=== PATIENT | male | born 1990 | race Hispanic/Latino ===

== ENCOUNTER 2019-02-24 19:34 | Inpatient (IN) | payer OTHER, SELFPAY ==
[2019-02-24] MEDS ORDERED: Morphine 4 MG/ML VIAL ONE ×2 (20:28→20:30)
[2019-02-24] MEDS ORDERED: Ondansetron PF 4 MG/2 ML Vial IVP PRN (22:53)
[2019-02-24] MEDS ORDERED: Morphine 4 MG/ML VIAL SLOW IVP PRN (22:53)
[2019-02-24 23:05] VITALS: BMI 46.5
[2019-02-24] MEDS: Acetaminophen 1,000 MG in Premix Bag 1 BAG IVPB PRN (23:25)
[2019-02-24] MEDS: Piperacillin/Tazobactam 4.5 GM in Sodium Chloride 0.9% 100 ML IVPB SCH (23:25)
[2019-02-24] MEDS: Sodium Chloride 0.9% 1,000 ML IV SCH (23:27)
[2019-02-25] MEDS ORDERED: Sodium Chloride 0.9% 1,000 ML IV SCH (00:45)
[2019-02-25] MEDS ORDERED: Morphine 4 MG/ML VIAL SLOW IVP PRN ×2 (00:51→12:11)
[2019-02-25] MEDS: Morphine 2 MG/ML SYRINGE SLOW IVP PRN ×2 (00:57→05:11)
[2019-02-25] MEDS: Piperacillin/Tazobactam 4.5 GM in Sodium Chloride 0.9% 100 ML IVPB SCH (05:11)
[2019-02-25] MEDS: Acetaminophen 1,000 MG in Premix Bag 1 BAG IVPB PRN (05:11)
[2019-02-25] MEDS ORDERED: Piperacillin/Tazobactam 3.375 GM VIAL ONE (09:55)
[2019-02-25] MEDS ORDERED: Sodium Chloride 0.9% 100 ML ONE (09:55)
[2019-02-25] MEDS ORDERED: Bupivacaine HCl 0.5%/Epinephrine 1:200,000/PF 30 ml Vial ONE (10:03)
[2019-02-25] MEDS ORDERED: Fentanyl 100 MCG/2 ML VIAL ONE ×5 (10:09→12:08)
[2019-02-25] MEDS ORDERED: Lidocaine 1% PF 5 ML VIAL ONE (10:41)
[2019-02-25] MEDS ORDERED: Succinylcholine Chloride 20 MG/ML 10 ml SYRINGE FS ONE (10:41)
[2019-02-25] MEDS ORDERED: PROPOFOL 200 MG/20 ML VIAL ONE (10:41)
[2019-02-25] MEDS ORDERED: Glycopyrrolate 0.2 MG/ML 5 ML SYRINGE ONE (10:41)
[2019-02-25] MEDS ORDERED: Rocuronium Bromide 10 MG/ML (10ML VIAL) ONE (10:41)
--- NOTE | 2019-02-25 11:29 | OP ---
DATE OF PROCEDURE: 02/25/2019 PREOPERATIVE DIAGNOSIS: Acute appendicitis. POSTOPERATIVE DIAGNOSIS: Acute appendicitis. PROCEDURE PERFORMED: Laparoscopic appendectomy. ANESTHESIA: General. ESTIMATED BLOOD LOSS: Minimal. COMPLICATIONS: None. SPECIMEN: Appendix. FINDINGS: The tip of the appendix is fused to the mesentery of the sigmoid colon. The sigmoid colon has mild inflammatory change as well. Drain was placed. There was no purulence in the abdomen. DESCRIPTION OF PROCEDURE: The patient was taken to the operating room and laid supine on the operating room table. After general anesthetic was obtained, a Pittman was placed. The abdomen was shaved, prepped and draped in a sterile fashion. A curved incision was made below the umbilicus, cautery dissected down to and score the fascia. Abdominal cavity was entered bluntly using a Davina clamp. Holding stitch of PDS was placed on each side of the fascia. Aurora trocar was placed. High-flow pneumoperitoneum was obtained. A suprapubic 5 mm port and left lower quadrant 5 mm port were placed under direct visualization. The base of the appendix was found and traced over toward the sigmoid colon. In this area, there was phlegmonous type changes. The appendix was able to be bluntly dissected off the side of the sigmoid colon mesentery. There did appear to be appendicitis. A window was made at the base of the appendix and mesoappendix. Laparoscopic stapler was fired across the base of the appendix. A reload was fired across the mesoappendix. Appendix placed in EndoCatch bag and brought out through the Aurora. This little pocket was irrigated copiously. There was no purulence, but there was pretty severe inflammatory change. A 19 round drain was brought out through a separate stab incision and placed in this area, and sewn in place to the skin using silk. All port sites were infiltrated using local anesthetic. All ports were removed under camera visualization and pneumoperitoneum was let down. PDS used to close the fascial defect below the umbilicus. All incisions were irrigated and closed using 4-0 Monocryl and Dermabond. The patient was sent to Recovery in stable condition. All instrument counts, needle counts and lap counts were correct. Job ID: [id number]
[2019-02-25] MEDS ORDERED: Promethazine HCl 25 MG/ML VIAL ONE (11:38)
--- NOTE | 2019-02-25 11:40 | HP ---
CHIEF COMPLAINT: Abdominal pain. HISTORY OF PRESENT ILLNESS: This is a 29-year-old male with a previous history of diverticulitis that resolved nonoperatively, who presents with a history of periumbilical pain that localized down to the lower abdomen. Pain described as 8/10 and sharp, still hurts majority in the periumbilical area. Associated with no fevers or chills. He has had nausea, but no vomiting. This is not similar to the previous diverticulitis pain, which was more in the left lower quadrant. Denies history of inflammatory bowel disease. Denies history of previous colonoscopy. CT scan reveals likely an acute appendicitis. PAST MEDICAL HISTORY: Otherwise negative. PAST SURGICAL HISTORY: Negative. MEDICATIONS: Medicines taken daily none. ALLERGIES: NO KNOWN DRUG ALLERGIES. SOCIAL HISTORY: No smoking, alcohol, or other drugs. REVIEW OF SYSTEMS: 10-system review of systems otherwise negative except as described above. PHYSICAL EXAMINATION: HEENT: Sclerae anicteric. Oropharynx clear. NECK: No lymphadenopathy. CHEST: Clear. HEART: Regular rate and rhythm. ABDOMEN: Soft. Tender in the lower abdomen with guarding, without rebound. No abdominal or inguinal hernias. EXTREMITIES: No ischemia or edema to extremities. DIAGNOSTIC STUDIES: IMAGING STUDIES: CT scan shows likely appendicitis, but the inflammatory changes right at the tip of the appendix right near the sigmoid colon. ASSESSMENT: Likely appendicitis, but could be sigmoid diverticulitis. PLAN: Diagnostic laparoscopy, laparoscopic appendectomy, possible drain placement if deemed if this is in fact right next to the sigmoid colon. Risks, benefits, and alternatives were discussed, he gives consent, we will do this today. Job ID: [id number]
[2019-02-25] MEDS ORDERED: HYDROcodone/Acetaminophen 7.5/325 mg Tablet PO PRN (12:11)
[2019-02-25] MEDS ORDERED: Dextrose 5% in Water 1,000 ML IV PRN (12:11)
[2019-02-25] MEDS ORDERED: Dextrose 50% Abboject 50 ML SYRINGE SLOW IVP PRN (12:11)
[2019-02-25] MEDS ORDERED: Promethazine HCl 25 MG/ML VIAL IM PRN (12:11)
[2019-02-25] MEDS ORDERED: hydrALAZINE 20 MG/ML VIAL SLOW IVP PRN (12:11)
[2019-02-25] MEDS: HYDROcodone/Acetaminophen 7.5/325 mg Tablet PO PRN ×2 (12:39→18:46)
[2019-02-25] MEDS: Sodium Chloride 0.9% 1,000 ML IV SCH ×3 (14:23→23:47)
[2019-02-25] MEDS: Piperacillin/Tazobactam 3.375 GM in Sodium Chloride 0.9% 100 ML IVPB SCH ×2 (15:34→21:37)
[2019-02-25] MEDS: Ketorolac Tromethamine 30 MG/ML VIAL IVP PRN ×2 (17:09→23:39)
[2019-02-25] MEDS: Famotidine/PF 20 mg/2ml Vial SLOW IVP SCH (20:05)
[2019-02-25] MEDS: Famotidine 20 MG TAB PO SCH (20:06)
[2019-02-26] MEDS ORDERED: Sodium Chloride 0.9% 1,000 ML IV SCH (00:30)
[2019-02-26] MEDS: HYDROcodone/Acetaminophen 7.5/325 mg Tablet PO PRN ×2 (00:39→06:34)
[2019-02-26] MEDS: Piperacillin/Tazobactam 3.375 GM in Sodium Chloride 0.9% 100 ML IVPB SCH ×4 (03:32→22:32)
[2019-02-26] MEDS: Ketorolac Tromethamine 30 MG/ML VIAL IVP PRN ×2 (05:46→11:49)
[2019-02-26 06:08] LABS: #Eosinphils 0.1 thou/uL (0.0-0.7); #Lymphocytes 2.1 thou/uL (1.20-3.40); #Monocytes 0.6 thou/uL (0.11-0.59); #Neutrophils 9.8 thou/uL (1.40-6.50); %Basophils 0.2 % (0.0-1.0); %Eosinophils 1.1 % (0.0-10.0); %Lymphocytes 16.4 % (21.0-51.0); %Monocytes 4.4 % (0.0-10.0); %Neutrophils 77.9 % (42.0-75.0); Hemoglobin 11.3 g/dL (14.0-18.0); Mean Corpuscular HGB CONC 33.3 g/dL (32.0-36.0); Mean Corpuscular Hemoglobin 27.5 pg (27.0-31.0); Mean Corpuscular Volume 82.5 fL (78.0-98.0); Platelet Count 279 thou/uL (130-400); RBC Distribution Width 13.5 % (11.5-14.5); Red Blood Cell (RBC) Count 4.12 mill/uL (4.70-6.10); White Blood Cell (WBC) Count 12.6 thou/uL (4.8-10.8)
[2019-02-26 06:40] LABS: Anion Gap 11 mmol/L (10-20); BUN (Urea Nitrogen) 10 mg/dL (8.9-20.6); Calc. Creatinine Clearance 213 mL/min (70-130); Carbon Dioxide 21 mmol/L (22-29); Chloride 108 mmol/L (98-107); Estimated GFR-MDRD Greater than 90; Glucose 105 mg/dL (70-105); Potassium 3.8 mmol/L (3.5-5.1); Sodium 136 mmol/L (136-145)
[2019-02-26] MEDS: Sodium Chloride 0.9% 1,000 ML IV SCH (06:50)
[2019-02-26] MEDS: Famotidine/PF 20 mg/2ml Vial SLOW IVP SCH ×2 (09:14→19:25)
[2019-02-26] MEDS: Famotidine 20 MG TAB PO SCH ×2 (09:14→19:26)
--- NOTE | 2019-02-26 13:09 | PDOC.GSPN ---
Surgery Progress Note: Subj - Subjective Patient reports: no new complaints, tolerating a regular diet Surgery Progress Note: Obj - Vital signs Vital signs: Vital Signs - Most Recent Temp Pulse Resp BP Pulse Ox 98.7 F 88 16 95/64 95 02/26/19 11:00 02/26/19 11:00 02/26/19 11:00 02/26/19 11:00 02/26/19 11:00 - Physical Exam General: no distress Respiratory: clear to auscultation Abdomen: soft, appropriately tender Wound: healing well (ALAINA serous) Surgery Progress Note: Results - Labs Result Diagrams: 02/26/19 05:46 02/26/19 05:46 Lab results: Laboratory Results - last 24 hr 02/26/19 02/26/19 05:46 05:46 WBC 12.6 H RBC 4.12 L Hgb 11.3 L Hct 34.0 L MCV 82.5 MCH 27.5 MCHC 33.3 RDW 13.5 Plt Count 279 MPV 7.0 L Neutrophils % 77.9 H Lymphocytes % 16.4 L Monocytes % 4.4 Eosinophils % 1.1 Basophils % 0.2 Neutrophils # 9.8 H Lymphocytes # 2.1 Monocytes # 0.6 H Eosinophils # 0.1 Basophils # 0.0 Sodium 136 Potassium 3.8 Chloride 108 H Carbon Dioxide 21 L Anion Gap 11 BUN 10 Creatinine 0.91 Estimated GFR (MDRD) Greater than 90 Glucose 105 Calcium 8.0 Surgery Progress Note: A/P - Problem (1) Perforated appendicitis Current Visit: Yes Code(s): K35.32 - ACUTE APPENDICITIS WITH PERF AND LOC PERITONITIS, W/O ABSCS Status: Acute - Plan Plan: POD 1 -cont zosyn -ambulating well -Likely home tomorrow
[2019-02-26] MEDS: Acetaminophen 325 MG TAB PO PRN (17:15)
[2019-02-26] MEDS: Ondansetron PF 4 MG/2 ML Vial IVP PRN (17:16)
[2019-02-27] MEDS: Acetaminophen 325 MG TAB PO PRN ×3 (04:01→23:42)
[2019-02-27] MEDS: Piperacillin/Tazobactam 3.375 GM in Sodium Chloride 0.9% 100 ML IVPB SCH ×4 (04:02→21:06)
[2019-02-27] MEDS: Ketorolac Tromethamine 30 MG/ML VIAL IVP PRN ×3 (04:53→17:14)
[2019-02-27 06:51] LABS: Band 9 % (5-11); Eosinophils 1 % (0-10); Hemoglobin 11.3 g/dL (14.0-18.0); Lymphocytes 8 % (21-51); MDiff Complete? YES; Mean Corpuscular HGB CONC 33.8 g/dL (32.0-36.0); Mean Corpuscular Hemoglobin 27.6 pg (27.0-31.0); Mean Corpuscular Volume 81.6 fL (78.0-98.0); Mean Platelet Volume 7.2 fL (7.4-10.4); Monocytes 6 % (0-10); Neutrophil 76 % (42-75); Platelet Count 282 thou/uL (130-400); RBC Distribution Width 13.3 % (11.5-14.5); White Blood Cell (WBC) Count 14.1 thou/uL (4.8-10.8)
--- NOTE | 2019-02-27 09:08 | PDOC.GSPN ---
Surgery Progress Note: Subj - Subjective Narrative: Mr. Mendez is a 29 yo male who was admitted for acute appendicitis, he is on POD #2 status post laparoscopic appendectomy. He is doing okay. He has significant chills which started within the past half hour, and he is feeling a little nausea. Has had diarrhea X 3 this morning. Otherwise, his pain is 0/10 at rest. When he moves out of bed, he experiences pain localized to site of ALAINA drain. He has been ambulating well and eating well. Of concern is some cloudy, possibly purulent, drainage from ALAINA drain. Patient denies abdominal pain, vomiting, reflux, chest pain, dyspnea, or dizziness. Surgery Progress Note: Obj - Vital signs Vital signs: Vital Signs - Most Recent Temp Pulse Resp BP Pulse Ox 98.3 F 87 22 H 107/67 97 02/27/19 07:49 02/27/19 07:49 02/27/19 07:49 02/27/19 07:49 02/27/19 07:53 - Physical Exam General: no pain (at rest), obese (morbidly), other (appeared to be in mild discomfort due to chills) Neck: trachea midline Cardiovascular: regular rate and rhythm, no murmur Respiratory: clear to auscultation, normal respiratory effort, breath sounds present Abdomen: soft, non tender, positive bowel sounds Psychiatric: memory intact, oriented to time, oriented to person, oriented to place, speech is normal Wound: healing well, drainage (ALAINA 335 ml; drainage is cloudly brown) Surgery Progress Note: Results - Labs Result Diagrams: 02/27/19 05:57 02/26/19 05:46 Lab results: Laboratory Results - last 24 hr 02/27/19 05:57 WBC 14.1 H RBC 4.10 L Hgb 11.3 L Hct 33.5 L MCV 81.6 MCH 27.6 MCHC 33.8 RDW 13.3 Plt Count 282 MPV 7.2 L Neutrophils % (Manual) 76 H Band Neuts % (Manual) 9 Lymphocytes % (Manual) 8 L Monocytes % (Manual) 6 Eosinophils % (Manual) 1 Surgery Progress Note: A/P - Problem (1) Perforated appendicitis Current Visit: Yes Code(s): K35.32 - ACUTE APPENDICITIS WITH PERF AND LOC PERITONITIS, W/O ABSCS Status: Acute - Plan Plan: POD 2. Continue zosyn. Due to fever, monitor for a few more days until he is afebrile on antibiotics. If fever persists, order CT abdomen. Continue ambulating. Continue normal diet.
[2019-02-27] MEDS: Famotidine 20 MG TAB PO SCH ×2 (09:11→21:05)
[2019-02-27] MEDS: Famotidine/PF 20 mg/2ml Vial SLOW IVP SCH ×2 (09:18→21:15)
[2019-02-27] MEDS: Ondansetron PF 4 MG/2 ML Vial IVP PRN (10:44)
[2019-02-27] MEDS ORDERED: Zolpidem Tartrate 5 MG TAB PO PRN (12:11)
[2019-02-27] MEDS: Morphine 2 MG/ML SYRINGE SLOW IVP PRN (15:51)
[2019-02-27] MEDS ORDERED: Enoxaparin Sodium 40 MG/0.4 ML SYRINGE SC SCH (21:00)
[2019-02-28] MEDS: Piperacillin/Tazobactam 3.375 GM in Sodium Chloride 0.9% 100 ML IVPB SCH ×3 (04:15→23:09)
[2019-02-28 05:58] LABS: #Lymphocytes 1.5 thou/uL (1.20-3.40); #Monocytes 0.7 thou/uL (0.11-0.59); #Neutrophils 10.9 thou/uL (1.40-6.50); %Basophils 0.1 % (0.0-1.0); %Eosinophils 0.3 % (0.0-10.0); %Lymphocytes 11.5 % (21.0-51.0); %Monocytes 5.1 % (0.0-10.0); Hemoglobin 11.1 g/dL (14.0-18.0); Mean Corpuscular Hemoglobin 27.2 pg (27.0-31.0); Mean Corpuscular Volume 82.4 fL (78.0-98.0); Mean Platelet Volume 7.2 fL (7.4-10.4); Platelet Count 264 thou/uL (130-400); RBC Distribution Width 13.4 % (11.5-14.5); Red Blood Cell (RBC) Count 4.09 mill/uL (4.70-6.10); White Blood Cell (WBC) Count 13.2 thou/uL (4.8-10.8)
[2019-02-28] MEDS: Famotidine 20 MG TAB PO SCH ×2 (07:42→21:00)
[2019-02-28] MEDS: HYDROcodone/Acetaminophen 7.5/325 mg Tablet PO PRN (07:44)
--- NOTE | 2019-02-28 08:09 | PDOC.GSPN ---
Surgery Progress Note: Subj - Subjective Narrative: Mr. Mendez is a 29 yo male who was admitted for acute appendicitis, he is on POD #3 status post laparoscopic appendectomy. He is doing okay. His pain is 0/10 at rest. When he moves out of bed, he experiences 8/10 pain localized to site of ALAINA drain. His reoccurring fevers have persisted, with his temp reaching 102.9 this morning. His ALAINA drain is draining mild amount of purulent fluid. He reports loss of appetite this morning, diarrhea X 3, and intermittent chills. Patient denies reflux, vomiting, chest pain, dyspnea, or dizziness. Surgery Progress Note: Obj - Vital signs Vital signs: Vital Signs - Most Recent Temp Pulse Resp BP Pulse Ox 99.3 F 84 16 109/70 96 02/28/19 03:43 02/28/19 03:43 02/28/19 03:43 02/28/19 03:43 02/28/19 03:43 - Physical Exam General: other (29 yo male in mild discomfort due to chills/fever, expressing anxiety about needing to go back to work) Neck: no masses, trachea midline Cardiovascular: other (tachycardic, regular rhythm, with no murmur, rubs or gallops) Respiratory: clear to auscultation, normal expansion, normal respiratory effort , breath sounds present Abdomen: soft, positive bowel sounds, tender (diffusely mostly in right lower quadrant) Musculoskeletal: normal gait Psychiatric: memory intact, oriented to time, oriented to person, oriented to place, speech is normal Wound: dressing clean,dry,intact, drainage (ALAINA purulent fluid (80 ml)) Surgery Progress Note: Results - Labs Result Diagrams: 02/28/19 05:10 02/26/19 05:46 Lab results: Laboratory Results - last 24 hr 02/28/19 05:10 WBC 13.2 H RBC 4.09 L Hgb 11.1 L Hct 33.7 L MCV 82.4 MCH 27.2 MCHC 33.0 RDW 13.4 Plt Count 264 MPV 7.2 L Neutrophils % 83.0 H Lymphocytes % 11.5 L Monocytes % 5.1 Eosinophils % 0.3 Basophils % 0.1 Neutrophils # 10.9 H Lymphocytes # 1.5 Monocytes # 0.7 H Eosinophils # 0.0 Basophils # 0.0 Surgery Progress Note: A/P - Problem (1) Perforated appendicitis Current Visit: Yes Code(s): K35.32 - ACUTE APPENDICITIS WITH PERF AND LOC PERITONITIS, W/O ABSCS Status: Acute - Plan Plan: POD 3. Continue zosyn. Persisting fevers and purulent drainage are raising concern for infectious process/abscess formation. CT (02/28/19) shows more severe diverticulitis/with contast extravasation on rectal contrast Addendum - Physician - Physician Attestation Date/Time: 02/28/19 5452 I personally performed or re-performed the physical examination and medical decision making. I have verified all student documentation or findings, including history, physical exam and/or medical decision making. CT results reviewed. Patient having chills again this afternoon. On exam he is more distended and has more peritoneal signs. Unfortunately I think he needs sigmoid colectomy and colostomy today. Worry about worsening sepsis with the rigors/chills. He understands need for temporary colostomy. Risks, benefits, alternatives discussed and he gives consent
[2019-02-28] MEDS: Famotidine/PF 20 mg/2ml Vial SLOW IVP SCH ×2 (09:24→20:59)
[2019-02-28] MEDS ORDERED: Rocuronium Bromide 10 MG/ML (10ML VIAL) ONE (11:48)
[2019-02-28] MEDS ORDERED: Glycopyrrolate 0.2 MG/ML 5 ML SYRINGE ONE (11:48)
[2019-02-28] MEDS ORDERED: Dexamethasone 20 MG/5 ML VIAL ONE (11:48)
[2019-02-28] MEDS ORDERED: Ondansetron PF 4 MG/2 ML Vial ONE (11:48)
[2019-02-28] MEDS ORDERED: Lidocaine 1% PF 5 ML VIAL ONE (11:48)
[2019-02-28] MEDS ORDERED: Succinylcholine Chloride 20 MG/ML 10 ml SYRINGE FS ONE (11:48)
[2019-02-28] MEDS ORDERED: PHENYLEPHRINE-NS 100 MCG/ML 10 ML SYRINGE ONE (11:48)
[2019-02-28] MEDS ORDERED: PROPOFOL 200 MG/20 ML VIAL ONE (11:48)
[2019-02-28] MEDS ORDERED: Ketorolac Tromethamine 30 MG/ML VIAL ONE (11:48)
[2019-02-28] MEDS: Morphine 2 MG/ML SYRINGE SLOW IVP PRN (12:10)
--- NOTE | 2019-02-28 13:35 | CT ---
CT OF THE ABDOMEN AND PELVIS WITH IV CONTRAST INDICATION: History of appendectomy with concern for abscess COMPARISON: None FINDINGS: ABDOMEN: Lung bases: There are small bilateral pleural effusions and bibasilar atelectasis Liver: There is diffuse fatty liver Gallbladder: Normal appearing. Pancreas: Normal. Adrenal glands: Normal. Spleen: Normal. Kidneys and ureters: Normal. No hydronephrosis. Vasculature: Normal. Lymph nodes:There are a few shotty appearing lymph nodes within the mesentery as well as the retroper itoneum Free fluid in abdomen:The fluid and gas collection seen adjacent to the cecal apex, posterior to the sigmoid colon is slightly smaller now measuring 6 cm. With retrograde rectal contrast there is evidence of 2 fistulous communications to this fluid and gas collection extending from the proximal s igmoid colon on image 12 of series 2 and an additional fistula communication is seen involving the distal sigmoid colon on image 15 of series 2. Small amount of free fluid is seen involving the lower right paracolonic gutter. There is a surgical drain projecting near this fluid collection and extending out the right lower quadrant abdominal wall. PELVIS: Small and large bowel: There is postsurgical change of an appendectomy. There is improvement in the w all thickening involving the mid to proximal sigmoid colon. Scattered diverticula are present. Appendix:Surgically absent Bladder: Normal. Rectal and perirectal soft tissues:Normal. Reproductive structures: Normal. Free fluid in pelvis: Mild free fluid is seen posterior to the bladder. Lymphadenopathy pelvis: No lymphadenopathy is evident. Osseous structures: No acute osseous abnormality. No destructive osteolytic or osteoblastic lesion i s identified. Soft tissues:Normal. IMPRESSION: 1. Interval appendectomy. The fluid and gas collection likely related to the patient's prior containe d rupture is decreased in size now measuring up to 6 cm. There is evidence of full-thickness fistulous communication of the sigmoid colon to this collection at 2 different locations of the sigmo id colon. One is seen involving the more mid to proximal sigmoid colon in an area of still active colonic wall thickening and inflammation. The additional is seen involving the distal sigmoid colon, just proximal to the sigmoid rectal junction. Findings concerning the study were called to Dr. Chaudhary by Dr. Camargo at approximately 1:00 PM on February 28, 2019. 2. Mild free fluid in the right lower quadrant of the abdomen and pelvis
[2019-02-28] MEDS ORDERED: Sodium Chloride 0.9% 1,000 ML IV SCH ×2 (15:15)
[2019-02-28] MEDS ORDERED: Dexamethasone 4 mg/ml Vial ONE (15:42)
[2019-02-28] MEDS ORDERED: Fentanyl 100 MCG/2 ML VIAL ONE ×3 (15:44→18:40)
[2019-02-28] MEDS ORDERED: Midazolam HCl 2 mg/2 ml Vial ONE (15:44)
[2019-02-28] MEDS ORDERED: Iopamidol 370 76% 50 ML VIAL FS ONE (16:09)
[2019-02-28] MEDS ORDERED: Iopamidol-370 76% 500 ML 1 ML ONE (16:09)
[2019-02-28] MEDS ORDERED: Piperacillin/Tazobactam 3.375 GM VIAL ONE (16:36)
[2019-02-28] MEDS ORDERED: Promethazine HCl 25 MG/ML VIAL SLOW IVP PRN (18:35)
[2019-02-28] MEDS ORDERED: Promethazine HCl 25 MG/ML VIAL IM PRN ×3 (18:35→19:32)
[2019-02-28] MEDS ORDERED: PACU-Morphine 4MG/ML VIAL SLOW IVP PRN (18:35)
[2019-02-28] MEDS ORDERED: HYDROmorphone 2 MG/ML VIAL SLOW IVP PRN (18:35)
[2019-02-28] MEDS ORDERED: Morphine Sulfate 2 MG/ML SYRINGE SLOW IVP PRN (18:35)
[2019-02-28] MEDS ORDERED: Ondansetron HCl/PF 4 MG/2 ML Vial IVP PRN (18:35)
[2019-02-28] MEDS ORDERED: Zolpidem Tartrate 5 MG TAB PO PRN (18:44)
[2019-02-28] MEDS ORDERED: diphenhydrAMINE 25 MG CAP PO PRN (18:44)
[2019-02-28] MEDS ORDERED: Ondansetron PF 4 MG/2 ML Vial IVP PRN ×2 (18:44→19:32)
[2019-02-28] MEDS ORDERED: diphenhydrAMINE 50 MG/ML VIAL IVP PRN (18:44)
[2019-02-28] MEDS ORDERED: fentaNYL Citrate/PF 2,000 MCG in Sodium Chloride 0.9% 60 ML IV PRN (18:44)
[2019-02-28] MEDS ORDERED: Naloxone HCl 0.4 mg/ml Vial IV PRN (18:44)
[2019-02-28] MEDS ORDERED: diphenhydrAMINE 50 MG/ML VIAL IM PRN (18:44)
[2019-02-28] MEDS ORDERED: Communication Order-Pharmacy FS SCH (18:45)
[2019-02-28] MEDS ORDERED: hydrALAZINE 20 MG/ML VIAL SLOW IVP PRN (19:32)
[2019-02-28] MEDS: D5 1/2 NS w/20 mEq KCL 1,000 ML IV SCH (20:59)
[2019-02-28] MEDS: Enoxaparin Sodium 40 MG/0.4 ML SYRINGE SC SCH (21:00)
[2019-03-01] MEDS: Piperacillin/Tazobactam 3.375 GM in Sodium Chloride 0.9% 100 ML IVPB SCH ×5 (00:37→23:42)
[2019-03-01] MEDS: Acetaminophen 1,000 MG in Premix Bag 1 BAG IVPB SCH ×4 (00:37→17:35)
[2019-03-01 05:49] LABS: #Lymphocytes 0.7 thou/uL (1.20-3.40); #Monocytes 0.6 thou/uL (0.11-0.59); #Neutrophils 15.5 thou/uL (1.40-6.50); %Basophils 0.1 % (0.0-1.0); %Monocytes 3.5 % (0.0-10.0); %Neutrophils 92.4 % (42.0-75.0); Hemoglobin 10.6 g/dL (14.0-18.0); Mean Corpuscular HGB CONC 33.5 g/dL (32.0-36.0); Mean Corpuscular Hemoglobin 27.3 pg (27.0-31.0); Mean Corpuscular Volume 81.6 fL (78.0-98.0); Platelet Count 286 thou/uL (130-400); RBC Distribution Width 13.4 % (11.5-14.5); Red Blood Cell (RBC) Count 3.88 mill/uL (4.70-6.10); White Blood Cell (WBC) Count 16.8 thou/uL (4.8-10.8)
[2019-03-01] MEDS: Insulin Regular 300 UNITS/3 ML VIAL SC PRN ×2 (05:59→11:37)
[2019-03-01 06:08] LABS: Anion Gap 12 mmol/L (10-20); BUN (Urea Nitrogen) 9 mg/dL (8.9-20.6); Calc. Creatinine Clearance 246 mL/min (70-130); Calcium 8.7 mg/dL (7.8-10.44); Carbon Dioxide 22 mmol/L (22-29); Chloride 104 mmol/L (98-107); Estimated GFR-MDRD Greater than 90; Glucose 232 mg/dL (70-105); Potassium 4.2 mmol/L (3.5-5.1); Sodium 134 mmol/L (136-145)
[2019-03-01] MEDS: D5 1/2 NS w/20 mEq KCL 1,000 ML IV SCH ×3 (07:40→17:35)
[2019-03-01] MEDS: Famotidine 20 MG TAB PO SCH ×2 (08:54→21:14)
[2019-03-01] MEDS: Fluconazole In NaCl,Iso-Osm 200 MG in Premix Bag 1 BAG IVPB SCH (08:55)
[2019-03-01] MEDS: Famotidine/PF 20 mg/2ml Vial SLOW IVP SCH ×2 (10:44→21:16)
[2019-03-01] MEDS: Enoxaparin Sodium 40 MG/0.4 ML SYRINGE SC SCH (21:15)
[2019-03-01] MEDS: Sodium Chloride 0.9% 1,000 ML IV SCH (21:15)
--- NOTE | 2019-03-01 22:30 | PRG ---
DATE OF SERVICE: SUBJECTIVE: Aric Mendez is doing well today. He is tolerating his liquids. One day status post sigmoid colon resection for severe diverticulitis with diverting colostomy and Yonny pouch. OBJECTIVE: VITAL SIGNS: Temperature 98 degrees, pulse 68, blood pressure 107/68. GENERAL: The patient is tolerating liquids without nausea or vomiting. ABDOMEN: Colostomy is healthy. Abdomen is soft, obese. LUNGS: Clear to auscultation. CARDIAC: Regular rate and rhythm without murmur or gallop. EXTREMITIES: Unremarkable. LABORATORY DATA: White count 16, hemoglobin 10.6. Basic metabolic profile: Sodium 134. ASSESSMENT AND PLAN: Severe diverticulitis at 29 years of age, status post Yonny procedure. He is on a [employer] pump. He is tolerating liquids. He will continue on intravenous antibiotics and advanced his diet to full liquids. He has been out of bed and in a chair and ambulating. Job ID: [id number]
[2019-03-02] MEDS: Insulin Regular 300 UNITS/3 ML VIAL SC PRN ×2 (00:03→06:00)
[2019-03-02] MEDS: Sodium Chloride 0.9% 1,000 ML IV SCH ×3 (02:40→16:45)
[2019-03-02] MEDS: Piperacillin/Tazobactam 3.375 GM in Sodium Chloride 0.9% 100 ML IVPB SCH ×4 (05:59→23:29)
[2019-03-02] MEDS ORDERED: HYDROcodone/Acetaminophen 5/325 mg Tablet PO PRN ×2 (07:24)
[2019-03-02] MEDS: Famotidine 20 MG TAB PO SCH ×2 (08:10→20:34)
[2019-03-02] MEDS: Fluconazole In NaCl,Iso-Osm 200 MG in Premix Bag 1 BAG IVPB SCH (08:10)
[2019-03-02] MEDS: Famotidine/PF 20 mg/2ml Vial SLOW IVP SCH (08:17)
[2019-03-02] MEDS ORDERED: traMADol HCl 50 MG TAB PO PRN (11:01)
[2019-03-02] MEDS ORDERED: HYDROcodone/Acetaminophen 10/325 mg Tablet PO PRN (11:01)
[2019-03-02] MEDS ORDERED: Ibuprofen 800 MG TAB PO PRN (11:02)
[2019-03-02] MEDS: traMADol HCl 50 MG TAB PO PRN (11:17)
[2019-03-02] MEDS: HYDROcodone/Acetaminophen 10/325 mg Tablet PO PRN ×3 (12:44→23:33)
--- NOTE | 2019-03-02 17:24 | PRG ---
DATE OF SERVICE: 03/02/2019 SUBJECTIVE: Aric Mendez is doing well after Yonny procedure. His colostomy is healthy. He is tolerating liquids. He wants more regular food. OBJECTIVE: VITAL SIGNS: Temperature 97.9 degrees, pulse 73, blood pressure 108/73. He is voiding spontaneously after removal of his Pittman catheter. White count yesterday 16.8, hemoglobin 10.6. Basic metabolic profile normal yesterday except for a sodium of 134. He is on normal saline. LUNGS: Clear to auscultation. CARDIAC: Regular rate and rhythm without murmur or gallop. ABDOMEN: Soft and nontender. Colostomy healthy. EXTREMITIES: Unremarkable. ASSESSMENT AND PLAN: Status post Yonny procedure for severe diverticulitis. We would plan to advance his diet to a regular. Accu-Cheks are 239 to 150. We would put him on a diabetic diet. We will check hemoglobin A1c anticipating he will be ready to go home tomorrow on oral antibiotics. We will have stomach therapist see him. Job ID: [id number]
[2019-03-02] MEDS: Enoxaparin Sodium 40 MG/0.4 ML SYRINGE SC SCH (20:34)
[2019-03-03 05:31] LABS: #Lymphocytes 1.7 thou/uL (1.20-3.40); #Monocytes 0.7 thou/uL (0.11-0.59); #Neutrophils 11.4 thou/uL (1.40-6.50); %Basophils 0.1 % (0.0-1.0); %Eosinophils 0.1 % (0.0-10.0); %Lymphocytes 12.2 % (21.0-51.0); %Neutrophils 82.6 % (42.0-75.0); Hemoglobin 9.1 g/dL (14.0-18.0); Mean Corpuscular HGB CONC 32.7 g/dL (32.0-36.0); Mean Corpuscular Hemoglobin 26.9 pg (27.0-31.0); Mean Corpuscular Volume 82.5 fL (78.0-98.0); Mean Platelet Volume 7.3 fL (7.4-10.4); Platelet Count 352 thou/uL (130-400); RBC Distribution Width 13.3 % (11.5-14.5); Red Blood Cell (RBC) Count 3.37 mill/uL (4.70-6.10); White Blood Cell (WBC) Count 13.8 thou/uL (4.8-10.8)
[2019-03-03 05:34] LABS: Hemoglobin A1c 5.5 % (4.0-6.0)
[2019-03-03] MEDS: Piperacillin/Tazobactam 3.375 GM in Sodium Chloride 0.9% 100 ML IVPB SCH ×3 (05:47→18:19)
[2019-03-03] MEDS: HYDROcodone/Acetaminophen 10/325 mg Tablet PO PRN ×2 (05:53→18:22)
[2019-03-03] MEDS: Fluconazole In NaCl,Iso-Osm 200 MG in Premix Bag 1 BAG IVPB SCH (08:04)
[2019-03-03] MEDS: Famotidine 20 MG TAB PO SCH ×2 (08:04→20:49)
--- NOTE | 2019-03-03 11:59 | PDOC.GSPN ---
Surgery Progress Note: Subj - Subjective Narrative: Doing well. Tiffany diet. Pain well controlled Surgery Progress Note: Obj - Vital signs Vital signs: Vital Signs - Most Recent Temp Pulse Resp BP Pulse Ox 97.6 F 53 L 20 116/73 95 03/03/19 11:47 03/03/19 11:47 03/03/19 11:47 03/03/19 11:47 03/03/19 11:47 - Physical Exam General: no distress Abdomen: soft, appropriately tender Wound: healing well (dressing changed, gayle removed) Surgery Progress Note: Results - Labs Result Diagrams: 03/03/19 04:42 03/01/19 05:34 Lab results: Laboratory Results - last 24 hr 03/02/19 03/03/19 03/03/19 23:31 04:42 04:42 WBC 13.8 H RBC 3.37 L Hgb 9.1 L Hct 27.8 L MCV 82.5 MCH 26.9 L MCHC 32.7 RDW 13.3 Plt Count 352 MPV 7.3 L Neutrophils % 82.6 H Lymphocytes % 12.2 L Monocytes % 5.0 Eosinophils % 0.1 Basophils % 0.1 Neutrophils # 11.4 H Lymphocytes # 1.7 Monocytes # 0.7 H Eosinophils # 0.0 Basophils # 0.0 POC Glucose 116 H Hemoglobin A1c 5.5 03/03/19 05:47 WBC RBC Hgb Hct MCV MCH MCHC RDW Plt Count MPV Neutrophils % Lymphocytes % Monocytes % Eosinophils % Basophils % Neutrophils # Lymphocytes # Monocytes # Eosinophils # Basophils # POC Glucose 111 H Hemoglobin A1c Surgery Progress Note: A/P - Problem (1) Perforated appendicitis Current Visit: Yes Code(s): K35.32 - ACUTE APPENDICITIS WITH PERF AND LOC PERITONITIS, W/O ABSCS Status: Acute (2) Diverticulitis Current Visit: Yes Code(s): K57.92 - DVTRCLI OF INTEST, PART UNSP, W/O PERF OR ABSCESS W/O BLEED Status: Acute - Plan Plan: s/p sigmoid colectomy and colostomy -tiffany regular diet -gayle removed -probably home tomorrow -cdiff antigen positive, pcr negative
[2019-03-03] MEDS: traMADol HCl 50 MG TAB PO PRN (20:50)
[2019-03-03] MEDS: Enoxaparin Sodium 40 MG/0.4 ML SYRINGE SC SCH (20:51)
[2019-03-04] MEDS: HYDROcodone/Acetaminophen 10/325 mg Tablet PO PRN ×3 (00:24→12:23)
[2019-03-04] MEDS: Piperacillin/Tazobactam 3.375 GM in Sodium Chloride 0.9% 100 ML IVPB SCH ×3 (00:25→12:22)
[2019-03-04] MEDS: traMADol HCl 50 MG TAB PO PRN (04:33)
[2019-03-04 04:40] VITALS: BP 106/61; TEMP 97.5
[2019-03-04] MEDS: Fluconazole In NaCl,Iso-Osm 200 MG in Premix Bag 1 BAG IVPB SCH (08:20)
[2019-03-04] MEDS: Famotidine 20 MG TAB PO SCH (08:20)
--- NOTE | 2019-03-04 10:45 | PDOC.GSPN ---
Surgery Progress Note: Subj - Subjective Narrative: 29 yo male s/p appendectomy & sigmoid colectomy. Overall doing well, but does report persistent numbness to L anterolateral thigh, increased LLQ pain this am , & hallucinations when closing his eyes after taking pain medication. Reports being up & walking around without problems; did 5 laps around the floor x2 yesterday. Surgery Progress Note: Obj - Vital signs Vital signs: Vital Signs - Most Recent Temp Pulse Resp BP Pulse Ox 97.5 F L 59 L 16 106/61 97 03/04/19 04:39 03/04/19 04:39 03/04/19 04:39 03/04/19 04:39 03/04/19 08:39 - Physical Exam General: no distress, well developed, well nourished, obese Cardiovascular: regular rate and rhythm Respiratory: clear to auscultation, normal expansion, normal respiratory effort Abdomen: nondistended (Greatest tenderness is to LLQ), appropriately tender Psychiatric: other (Normal affect.) Wound: dressing clean,dry,intact (Serosanguinous drainage noted in ALAINA drain; dressings all CDI.) Surgery Progress Note: Results - Labs Result Diagrams: 03/03/19 04:42 03/01/19 05:34 Lab results: Laboratory Results - last 24 hr 03/04/19 03/04/19 00:32 05:53 POC Glucose 85 85 Surgery Progress Note: A/P - Problem (1) Diverticulitis Current Visit: Yes Code(s): K57.92 - DVTRCLI OF INTEST, PART UNSP, W/O PERF OR ABSCESS W/O BLEED Status: Acute - Plan Plan: Overall doing well s/p sigmoidectomy for diverticulitis as well as being s/p appendectomy. Plan to d/c home today. Advised that L thigh numbness will likely resolve. When seen later this am, states that LLQ pain had improved. Instructed to f/u with medical provider near his home ([place]) next week for staple removal. Drain pulled today by Dr Chaudhary. Instructed to call Dr Chaudhary's office with any concerns.
--- NOTE | 2019-03-05 10:33 | OP ---
DATE OF PROCEDURE: 02/28/2019 PREOPERATIVE DIAGNOSIS: Perforated sigmoid colon diverticulitis. POSTOPERATIVE DIAGNOSIS: Perforated sigmoid colon diverticulitis. PROCEDURES PERFORMED: 1. Open sigmoid colectomy with colostomy. 2. Mobilization of splenic flexure. ANESTHESIA: General. ESTIMATED BLOOD LOSS: 100 mL. COMPLICATIONS: None. FINDINGS: There is left lower quadrant sigmoid phlegmon diverticulitis. There was stool in the abdomen in location of previous drain. DESCRIPTION OF PROCEDURE: The patient was taken to the operating room and laid supine on the operating room table. After general anesthetic was obtained, a Pittman was placed. The abdomen was re-prepped and draped in a sterile fashion. The previous drain had been removed. Midline incision was made from pubis up above the umbilicus, cautery dissected down into the abdominal cavity. There was more severe inflammatory change in the sigmoid colon on this surgery. There was stool appearing fluid near my drain from laparoscopic appendectomy. Left colon was mobilized along the white line of Toldt. The left ureter was found and excluded from the dissection. Dissection was taken down where the sigmoid colon diverticulitis was dissected off the left pelvic sidewall and the posterior aspect of the bladder without injury. Contour stapler was fired across the rectosigmoid junction and the distal staple line was marked using a Prolene. The colon was mobilized up the left abdomen with the mesentery taken using the Impact LigaSure. The splenic flexure was mobilized in the usual fashion in order to allow the proximal colon to reach up through the thick abdominal wall. The most severe area of sigmoid colon inflammation was removed by stapling proximal to this. Specimen was sent to Path. The abdomen was irrigated using sterile solution until returns were clear. There was no injury to any intra-abdominal structure. The previous appendectomy site stump appeared sealed without evidence of complication. An additional a 19 round was brought out through the same incision in the right lower quadrant and left in the pelvis. Ellipse of skin was taken out in the left abdomen and then proximal colon was brought up through the abdominal wall. This will be the location of the end colostomy. All instrument counts, needle counts, and lap counts were correct. PDS was used to close the fascia from top to bottom and tied in the middle. Skin was closed using skin clips and skin shena with Telfa gayle placed in between. Colostomy device was placed. The patient was sent to Recovery in stable condition. All instrument counts, needle counts, and lap counts were correct. Job ID: [id number]
[2019-03-10 09:09] LABS: Fungus Stain Final report (.); Fungus Stain Result 1 Yeast observed (.)
== END 2019-03-04 13:01 | disposition home or self-care (01) | DRG 330 ==
LOC: ERS 19:34 → OBSVTOIN 20:15 → SURG B 20:15
PROVIDERS: ADMIT Surgery; ATTEND Surgery
PROC: 0DTJ4ZZ Resection of Appendix, Percutaneous Endoscopic Approach (ICD-10-PCS; principal; 2019-02-25)
PROC: 0DTN0ZZ Resection of Sigmoid Colon, Open Approach (ICD-10-PCS; 2019-02-28)
PROC: 0D1L0Z4 Bypass Transverse Colon to Cutaneous, Open Approach (ICD-10-PCS; 2019-02-28)
DX: K35.32 Acute appendicitis with perforation, localized peritonitis, and gangrene, without abscess (principal); Z68.42 Body mass index [BMI] 45.0-49.9, adult; K57.20 Diverticulitis of large intestine with perforation and abscess without bleeding; R44.3 Hallucinations, unspecified; E66.01 Morbid (severe) obesity due to excess calories; F17.210 Nicotine dependence, cigarettes, uncomplicated; R50.82 Postprocedural fever
CPT/HCPCS: 36415; 36416; 74177; 80048; 83036; 85025; 87070; 87102; 87205; 87206; 87324; 87449; 87493; 88304; 88307; 88312; 96374; J0131; J0670; J1100; J1450; J1650; J1815; J1885; J2001; J2250; J2270; J2405; J2543; J2550; J2704; J3010; J3490; Q9967; S0028